=== PATIENT | male | born 1960 | race Caucasian/White ===

== ENCOUNTER 2023-11-30 10:22 | Emergency (ER) | payer OTHER ==
[2023-11-30 10:55] VITALS: BP 149/89; PULSE 65; RESP 18; TEMP 98.1; BMI 33.9
[2023-11-30] MEDS ORDERED: predniSONE 20 MG TABLET (UD) PO ONE (11:16)
[2023-11-30] MEDS ORDERED: predniSONE 20 MG TABLET (UD) ONE (11:39)
== END 2023-11-30 13:31 | disposition home or self-care (01) ==
LOC: JERFT 10:22
PROC: 3E023GC Introduction of Other Therapeutic Substance into Muscle, Percutaneous Approach (ICD-10-PCS; principal; 2023-11-30)
DX: R21 Rash and other nonspecific skin eruption (principal); L50.9 Urticaria, unspecified
CPT/HCPCS: 99284-25